=== PATIENT | male | born 1960 | race Two or more races ===

== ENCOUNTER 2020-04-16 12:20 | Inpatient (IN) | payer OTHER ==
[~2020-04-16] VITALS: Ht 167.6 cm; Wt 72.0 kg
[2020-04-16 14:21] LABS: Anion Gap 4 (5-15); Blood Urea Nitrogen 6 mg/dL (7-18); Calcium 7.5 mg/dL (8.5-10.1); Carbon Dioxide 26 mmol/L (21-32); Chloride 110 mmol/L (98-107); Glucose 82 mg/dL (74-106); Potassium 3.6 mmol/L (3.5-5.1); Sodium 140 mmol/L (136-145)
[2020-04-16 14:27] LABS: Alanine Aminotransferase 34 U/L (16-61); Alkaline Phosphatase 141 U/L (45-117); Aspartate Aminotransferase 65 U/L (15-37); BUN/Creatinine Ratio 9.5; Bilirubin, Total 2.2 mg/dL (0.2-1.0); GFR African American 166 mL/min; GFR Non-African American 137 mL/min; Total Protein 7.9 g/dL (6.4-8.2)
[2020-04-16 14:56] LABS: Basophils # (auto) 0.1 10 ^3/uL (0-0.2); Eosinophils # (auto) 0.4 10 ^3/uL (0-0.8); Monocytes # (auto) 0.8 10 ^3/uL (0-1.3); Nucleated Red Blood Cells % 0.2 %; Platelet Count (auto) 144 10^3/uL (140-450)
[2020-04-16 14:57] LABS: Basophils % (auto) 0.9 % (0.0-2.0); Eosinophils % (auto) 5.8 % (0.0-7.0); Hemoglobin 12.2 g/dL (13.5-17.5); Lymphocytes # (auto) 2.6 10 ^3/uL (0.4-5.4); Lymphocytes % (auto) 34.6 % (10.0-50.0); Mean Corpuscular Hemoglobin 34.9 pg (28.0-32.0); Mean Corpuscular Hgb Conc. 33.9 g/dL (32.0-36.0); Mean Corpuscular Volume 102.8 fL (80.0-100.0); Monocytes % (auto) 10.3 % (0.0-12.0); Neutrophils # (auto) 3.6 10 ^3/uL (1.6-8.6); Neutrophils % (auto) 48.4 % (37.0-80.0); Red Cell Distribution Width 17.6 % (11.8-14.3); White Blood Cell 7.4 10^3/uL (4.4-10.8)
[2020-04-16] MEDS ORDERED: AZITHROMYCIN 500MG/ 250ML 250 ML IV ONE (17:30)
[2020-04-16 18:29] LABS: INR 1.6 (0.9-1.15)
[2020-04-16] MEDS ORDERED: MORPHINE SULFATE 4 MG/ML SYR/VIAL IV PRN (22:15)
[2020-04-16] MEDS ORDERED: hydrALAZINE HCL 20 MG/ML VL IV PRN (22:15)
[2020-04-16] MEDS ORDERED: D5W/SOD CHL 0.45% 1,000 ML IV SCH (22:15)
[2020-04-16] MEDS ORDERED: NITROGLYCERIN 0.4 MG SL TAB SL PRN (22:15)
[2020-04-16] MEDS ORDERED: MORPHINE SULF INJ 2 MG/ML SYRINGE 1ML IV PRN (22:15)
[2020-04-16] MEDS ORDERED: ACETAMINOPHEN 325 MG TAB PO PRN (22:15)
[2020-04-16] MEDS ORDERED: ALBUMIN 5% 250 ML IV ONE (22:15)
[2020-04-16] MEDS ORDERED: ONDANSETRON HCL 4 MG/2 ML VIAL IV PRN (22:15)
[2020-04-16] MEDS ORDERED: HYDROcodone-ACET 5/325MG TAB PO PRN (22:15)
[2020-04-17] VITALS (7 sets, daily range): BP systolic 108–122; BP diastolic 66–88
[2020-04-17 09:43] LABS: Eosinophils # (auto) 0.5 10 ^3/uL (0-0.8); Lymphocytes # (auto) 3.2 10 ^3/uL (0.4-5.4); Nucleated Red Blood Cells % 0.1 %; White Blood Cell 8.4 10^3/uL (4.4-10.8)
[2020-04-17 09:47] LABS: Basophils # (auto) 0.1 10 ^3/uL (0-0.2); Basophils % (auto) 1.1 % (0.0-2.0); Eosinophils % (auto) 6.2 % (0.0-7.0); Hematocrit 29.5 % (41.0-53.0); Hemoglobin 10.1 g/dL (13.5-17.5); Lymphocytes % (auto) 38.2 % (10.0-50.0); Mean Corpuscular Hemoglobin 35.2 pg (28.0-32.0); Mean Corpuscular Hgb Conc. 34.4 g/dL (32.0-36.0); Mean Corpuscular Volume 102.2 fL (80.0-100.0); Monocytes # (auto) 0.9 10 ^3/uL (0-1.3); Monocytes % (auto) 10.2 % (0.0-12.0); Neutrophils # (auto) 3.7 10 ^3/uL (1.6-8.6); Neutrophils % (auto) 44.3 % (37.0-80.0); Platelet Count (auto) 126 10^3/uL (140-450); Red Blood Cells 2.88 10^6/uL (4.5-5.90); Red Cell Distribution Width 16.8 % (11.8-14.3)
[2020-04-17] MEDS ORDERED: AZITHROMYCIN 500MG/ 250ML 250 ML IV SCH (10:00)
[2020-04-17 10:15] LABS: Albumin 1.8 g/dL (3.4-5.0); Calcium 7.3 mg/dL (8.5-10.1); Potassium 3.7 mmol/L (3.5-5.1)
[2020-04-17 10:24] LABS: BUN/Creatinine Ratio 9.6; Total Protein 6.3 g/dL (6.4-8.2)
[2020-04-17] MEDS: FAMOTIDINE (10MG/ML) 2ML VL IV SCH ×2 (11:14→23:29)
[2020-04-17] MEDS ORDERED: FUROSEMIDE 40 MG TAB PO ONE (11:30)
[2020-04-17] MEDS ORDERED: METHADONE HCL 10 MG TAB PO ONE (11:30)
[2020-04-17] MEDS: DOXYCYCLINE 100MG/250ML 250 ML IV SCH ×2 (16:04→23:45)
[2020-04-17] MEDS: SPIRONOLACTONE 25 MG TAB PO SCH (18:11)
[2020-04-17 18:27] LABS: Urine WBC None Seen /hpf (0 - 3)
[2020-04-17 18:36] LABS: Urine Bacteria NONE SEEN /hpf (None Seen); Urine Blood Negative /uL (Negative); Urine Mucus FEW (None Seen); Urine Specific Gravity 1.004 (1.001-1.035)
[2020-04-17 18:53] LABS: Alcohol, Urine < 3.0 mg/dL (0-10); Amphetamine Screen, Urine NEGATIVE (NEGATIVE); Barbiturate Scree,Urine NEGATIVE (NEGATIVE); Benzodiazephine Screen, Urine NEGATIVE (NEGATIVE); Cannabinoid Screen, Urine NEGATIVE (NEGATIVE); Cocaine Screen, Urine NEGATIVE (NEGATIVE); Opiate Scree,Urine NEGATIVE (NEGATIVE); Phencyclidine Screen, Urine NEGATIVE (NEGATIVE)
[2020-04-18] VITALS (15 sets, daily range): BP systolic 101–136; BP diastolic 61–93
[2020-04-18] MEDS: SPIRONOLACTONE 25 MG TAB PO SCH ×2 (05:43→18:00)
[2020-04-18 06:38] LABS: Eosinophils # (auto) 0.6 10 ^3/uL (0-0.8); Lymphocytes # (auto) 2.9 10 ^3/uL (0.4-5.4); Neutrophils % (auto) 47.3 % (37.0-80.0); Nucleated Red Blood Cells % 0.1 %
[2020-04-18 06:42] LABS: Basophils # (auto) 0.1 10 ^3/uL (0-0.2); Eosinophils % (auto) 6.5 % (0.0-7.0); Hematocrit 29.3 % (41.0-53.0); Hemoglobin 10.5 g/dL (13.5-17.5); Lymphocytes % (auto) 34.1 % (10.0-50.0); Mean Corpuscular Hemoglobin 36.7 pg (28.0-32.0); Mean Corpuscular Hgb Conc. 35.9 g/dL (32.0-36.0); Monocytes % (auto) 11.1 % (0.0-12.0); Neutrophils # (auto) 4.1 10 ^3/uL (1.6-8.6); Platelet Count (auto) 116 10^3/uL (140-450); Red Blood Cells 2.87 10^6/uL (4.5-5.90); Red Cell Distribution Width 16.9 % (11.8-14.3); White Blood Cell 8.6 10^3/uL (4.4-10.8)
[2020-04-18 06:53] LABS: INR 1.64 (0.9-1.15); Partial Thromboplastin Time 46.1 sec (23.0-31.2)
[2020-04-18 07:01] LABS: Albumin 1.8 g/dL (3.4-5.0); Calcium 7.3 mg/dL (8.5-10.1); Potassium 3.7 mmol/L (3.5-5.1)
[2020-04-18 07:04] LABS: BUN/Creatinine Ratio 10.2; Bilirubin, Total 1.8 mg/dL (0.2-1.0); Total Protein 6.6 g/dL (6.4-8.2)
[2020-04-18] MEDS ORDERED: FUROSEMIDE 40 MG TAB PO SCH (10:00)
[2020-04-18] MEDS ORDERED: THIAMINE HCL 100 MG TAB PO SCH (10:00)
[2020-04-18] MEDS: FAMOTIDINE (10MG/ML) 2ML VL IV SCH (10:00)
[2020-04-18] MEDS ORDERED: FOLIC ACID 1 MG TAB PO SCH (10:00)
[2020-04-18] MEDS: METHADONE HCL 10 MG TAB PO SCH ×2 (10:00→11:00)
[2020-04-18] MEDS: DOXYCYCLINE 100MG/250ML 250 ML IV SCH (11:30)
[2020-04-18] MEDS ORDERED: ALBUMIN 25% 100 ML IV ONE (12:45)
[2020-04-18] MEDS ORDERED: FURO40TA4 PO (15:10)
[2020-04-18] MEDS ORDERED: THIA100T10 PO (15:10)
[2020-04-18] MEDS ORDERED: SPIR25TA PO (15:10)
[2020-04-18] MEDS ORDERED: PANT40TA2 PO (15:10)
[2020-04-18] MEDS ORDERED: FOLI1TAB6 PO (15:10)
[2020-04-18 17:00] LABS: Hepatitis B Surface Antigen Negative (Negative)
[2020-04-18 17:01] LABS: Hepatitis B Core IgM Negative
[2020-04-18 17:03] LABS: Hepatitis C Antibody Positive (Negative)
[2020-04-18 17:04] LABS: Hepatitis A Ab IgM Negative
== END 2020-04-18 18:51 | disposition home or self-care (01) | DRG 280 ==
LOC: ER 12:20 → TELE 22:15 → TELE-EAST 04-17 02:13 → TELE-CENTR 04-17 21:30
PROVIDERS: ADMIT Nurse Practitioner Family; ATTEND Internal Medicine
PROC: 05HA33Z Insertion of Infusion Device into Left Brachial Vein, Percutaneous Approach (ICD-10-PCS; 2020-04-16)
PROC: B54NZZA Ultrasonography of Left Upper Extremity Veins, Guidance (ICD-10-PCS; 2020-04-16)
PROC: 0W9G3ZZ Drainage of Peritoneal Cavity, Percutaneous Approach (ICD-10-PCS; principal; 2020-04-18)
DX: K70.31 Alcoholic cirrhosis of liver with ascites (principal); J18.9 Pneumonia, unspecified organism; E43 Unspecified severe protein-calorie malnutrition; Z68.25 Body mass index [BMI] 25.0-25.9, adult; I10 Essential (primary) hypertension; K76.6 Portal hypertension; K21.9 Gastro-esophageal reflux disease without esophagitis; D68.9 Coagulation defect, unspecified; F10.10 Alcohol abuse, uncomplicated; D69.6 Thrombocytopenia, unspecified; E88.09 Other disorders of plasma-protein metabolism, not elsewhere classified; Z20.822 Contact with and (suspected) exposure to COVID-19; F11.10 Opioid abuse, uncomplicated; B19.20 Unspecified viral hepatitis C without hepatic coma; F17.210 Nicotine dependence, cigarettes, uncomplicated; Z82.49 Family history of ischemic heart disease and other diseases of the circulatory system; Z83.3 Family history of diabetes mellitus
CPT/HCPCS: 10022; 36415; 71045; 74176; 74181; 76705; 76942; 80053; 80074; 80307; 81001; 82140; 83605; 83615; 83735; 83880; 84484; 85025; 85610; 85730; 87040; 87426; 89051; 93005; 96365; 96367; G0378; J3490; P9047